=== PATIENT | male | born 1995 | race Caucasian/White ===

== ENCOUNTER 2016-10-12 12:07 | Emergency (ER) | payer OTHER ==
[2016-10-12] MEDS ORDERED: SUCRALFATE 1 GM/10 ML UDC PO STA (13:22)
[2016-10-12] MEDS ORDERED: PHENobarb/HYOSCY/ATROPINE/SCOP 5 ML SYRINGE PO STA (13:22)
[2016-10-12] MEDS ORDERED: FAMOTIDINE 20 MG TABLET PO STA (13:22)
[2016-10-12] MEDS ORDERED: MAG HYDROX/AL HYDROX/SIMETH 30 ML UDC PO STA (13:22)
[2016-10-12] MEDS ORDERED: LIDOCAINE VISCOUS 2% 15 ML UDC MM STA (13:22)
[2016-10-12] MEDS ORDERED: PHENobarb/HYOSCY/ATROPINE/SCOP 5 ML SYRINGE PO ONE (13:26)
[2016-10-12] MEDS ORDERED: SUCRALFATE 1 GM/10 ML UDC ONE (13:26)
[2016-10-12] MEDS ORDERED: LIDOCAINE VISCOUS 2% 15 ML UDC MM ONE (13:26)
[2016-10-12] MEDS ORDERED: MAG HYDROX/AL HYDROX/SIMETH 30 ML UDC ONE (13:27)
[2016-10-12] MEDS ORDERED: FAMOTIDINE 20 MG TABLET ONE (13:27)
== END 2016-10-12 14:38 | disposition home or self-care (01) ==
DX: K29.00 Acute gastritis without bleeding (principal)
CPT/HCPCS: 36415; 80053; 81003; 83690; 85025; 87339; 99283; 99284; A9270

== ENCOUNTER 2021-10-14 07:27 | Emergency (ER) | payer BC, OTHER ==
--- NOTE | 2021-10-14 07:38 | ED Physician Documentation ---
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 It continued for 20-30 minutes so put on a spare telemetry box and heart rate noted from 130s to 154 highest. No monitor strips printed though. HE noted HR decreasing but still fast.) Radiation: Other (mild frontal headache.). No: Jaw, Neck Improved by: No: Rest Worsened by: No: Exertion Associated symptoms: Palpitations, Other (mild headache). No: Shortness of air, Nausea, Feeling faint / dizzy Similar symptoms before: Has not had sx before Recently seen: Not recently seen, Other (did not get recent vaccination, nor had recent illness. No stimulant use except 1 cup coffee and a tea daily. Was in [place] last weekend with friends and drank heavily for one night, but has felt okay since then.) Review of Systems Constitutional: denies: Fever, Chills Nose: denies: Rhinorrhea / runny nose, Congestion Throat: denies: Sore throat Respiratory: denies: Cough PD PAST MEDICAL HISTORY - Past Medical History Past Medical History: Yes Cardiovascular: None Respiratory: None Neuro: None Endocrine/Autoimmune: None GI: GERD : None HEENT: None Psych: None Musculoskeletal: None Derm: None - Past Surgical History Past Surgical History: No - Present Medications Home Medications: Ambulatory Orders Medication Instructions Recorded Confirmed Omeprazole [PriLOSEC] 40 mg PO DAILY 10/14/21 10/14/21 - Allergies Allergies/Adverse Reactions: Allergies Allergy/AdvReac Type Severity Reaction Status Date / Time No Known Drug Allergies Allergy Verified 10/14/21 07:31 - Social History Does the pt smoke?: No Smoking Status: Never smoker Does the pt drink ETOH?: No Does the pt have substance abuse?: No - Immunizations Immunizations are current?: Yes PD ED PE NORMAL - Vitals Vital signs reviewed: Yes - General General: Alert and oriented X 3, No acute distress, Well developed/nourished - HEENT HEENT: Moist mucous membranes, Pharynx benign - Neck Neck: Supple, no meningeal sign, No adenopathy, Thyroid normal - Cardiac Cardiac: RRR (tachycardic but regular without rub nor murmur. ), No murmur, No rub - Respiratory Respiratory: Clear bilaterally, Other (no chestwall tenderness. ) - Abdomen Abdomen: Soft, Non tender - Derm Derm: Normal color, Warm and dry - Extremities Extremities: No edema, No calf tenderness / cord - Neuro Neuro: Alert and oriented X 3, No motor deficit, Normal speech Results - Vitals Vitals: Vital Signs - 24 hr 10/14/21 10/14/21 10/14/21 07:32 09:12 09:31 Temperature 37.4 C 37.5 C Heart Rate 106 H 88 98 Respiratory 16 17 10 L Rate Blood Pressure 151/85 H 118/65 118/65 O2 Saturation 100 98 100 Oxygen O2 Source Room air - EKG (time done) 07:36 Rate: Rate (enter#) (122) Rhythm: Sinus tachycardia [place]: Normal Intervals: Normal [place] QRS: Normal Ischemia: Normal ST segments, ST elevation c/w repol. No: ST elevation c/w ischemia, ST depression - Labs Labs: Laboratory Tests 10/14/21 10/14/21 10/14/21 08:05 08:05 08:05 WBC 8.4 RBC 5.03 Hgb 14.8 Hct 44.2 MCV 87.9 MCH 29.4 MCHC 33.5 RDW 12.6 Plt Count 245 MPV 9.8 Neut # (Auto) 5.0 Lymph # (Auto) 2.5 [place] # (Auto) 0.8 Eos # (Auto) 0.0 Baso # (Auto) 0.0 Absolute Nucleated RBC 0.00 Nucleated RBC % 0.0 Sodium 138 Potassium 3.7 Chloride 100 L Carbon Dioxide 27 Anion Gap 11.0 BUN 14 Creatinine 0.8 Estimated GFR (MDRD) 118 Glucose 102 H Calcium 9.2 Total Bilirubin 0.5 AST 16 ALT 16 Alkaline Phosphatase 71 Troponin I High Sens < 2.3 L C-Reactive Protein < 1.0 B-Natriuretic Peptide Total Protein 8.1 Albumin 4.9 Globulin 3.2 Albumin/Globulin Ratio 1.5 Lipase 30 TSH 10/14/21 10/14/21 08:05 08:05 WBC RBC Hgb Hct MCV MCH MCHC RDW Plt Count MPV Neut # (Auto) Lymph # (Auto) [place] # (Auto) Eos # (Auto) Baso # (Auto) Absolute Nucleated RBC Nucleated RBC % Sodium Potassium Chloride Carbon Dioxide Anion Gap BUN Creatinine Estimated GFR (MDRD) Glucose Calcium Total Bilirubin AST ALT Alkaline Phosphatase Troponin I High Sens C-Reactive Protein B-Natriuretic Peptide 11 Total Protein Albumin Globulin Albumin/Globulin Ratio Lipase TSH 4.33 PD MEDICAL DECISION MAKING - ED course Complexity details: re-evaluated patient (his heart rate decreased gradually with time and was getting some IV fluids. It sounds like possibly he had an episode of atrial fib, with described HR 135-150s, and is now recovering. No signs of more acute process. ), considered differential, d/w patient Departure - Departure Disposition: 01 Home, Self Care Clinical Impression: Tachycardia Condition: Stable Record reviewed to determine appropriate education?: Yes Instructions: ED Tachycardia Pat PSVT Follow-Up: Jennifer Benitez PA-C [Primary Care Provider] - Comments: Your EKG appears normal for age. The heart rate is fast but has slowed down reasonably. It still faster than normal. No signs of irregular rhythm at this time. Your blood tests are good to without any signs of abnormality of your blood count, electrolytes, kidney function, blood sugar, thyroid or troponin. Your chest x-ray is clear without any signs of fluid buildup in the lungs. So no signs of cardiomyopathy or heart failure. Unclear the cause of your heart rate going fast. Given the heart rate of it earlier being 140-150s, I would consider the possibility of an episode of A. fib with now resolving tachycardia. That can relate to dehydration or other irritants of the heart and be isolated episode. At this point I would just see how you feel over the next day or 2 if you are feeling normal., No further work-up is needed. Stay well-hydrated through the day. Normal diet and activity. Discharge Date/Time: 10/14/21 09:35
[2021-10-14] MEDS ORDERED: SODIUM CHLORIDE 0.9% 1,000 ML IV STA (07:55)
[2021-10-14] MEDS ORDERED: KETOROLAC 15 MG/ML VIAL IVP STA (07:56)
[2021-10-14 08:24] LABS: BASOPHILS % (AUTO) 0.5 %; EOSINOPHILS % (AUTO) 0.4 %; HCT - HEMATOCRIT 44.2 % (42.0-52.0); HGB - HEMOGLOBIN 14.8 g/dL (14.0-18.0); LYMPHOCYTES # (AUTO) 2.5 10^3/uL (1.5-3.5); LYMPHOCYTES % (AUTO) 29.5 %; MEAN CORPUSCULAR HEMOGLOBIN 29.4 pg (27.0-31.0); MEAN CORPUSCULAR HGB CONC 33.5 g/dL (32.0-36.0); MEAN CORPUSCULAR VOLUME 87.9 fL (80.0-94.0); MEAN PLATELET VOLUME 9.8 fL (7.4-11.4); MONOCYTES # (AUTO) 0.8 10^3/uL (0.0-1.0); MONOCYTES % (AUTO) 9.4 %; PLT - PLATELET COUNT 245 10^3/uL (130-450); RED BLOOD COUNT 5.03 10^6/uL (4.70-6.10); RED CELL DISTRIBUTION WIDTH 12.6 % (12.0-15.0); WHITE BLOOD COUNT 8.4 x10^3/uL (4.8-10.8)
[2021-10-14 08:39] LABS: ALBUMIN 4.9 g/dL (3.2-5.5); ALBUMIN/GLOBULIN RATIO 1.5 (1.0-2.2); ALKALINE PHOSPHATASE 71 IU/L (42-121); ALT ALANINE AMINOTRANSFERASE 16 IU/L (10-60); AST ASPARTATE AMINOTRANSFERASE 16 IU/L (10-42); BILIRUBIN,TOTAL 0.5 mg/dL (0.2-1.0); BUN - BLOOD UREA NITROGEN 14 mg/dL (6-20); CALCIUM 9.2 mg/dL (8.5-10.3); CARBON DIOXIDE - CO2 27 mmol/L (21-32); CHLORIDE 100 mmol/L (101-111); CREATININE 0.8 mg/dL (0.6-1.2); GFR - MDRD 118 (>89); GLUCOSE 102 mg/dL (70-100); LIPASE 30 U/L (22-51); POTASSIUM 3.7 mmol/L (3.5-5.0); SODIUM 138 mmol/L (135-145); TOTAL PROTEIN 8.1 g/dL (6.7-8.2)
[2021-10-14 08:50] LABS: CRP - C-REACTIVE PROTEIN < 1.0 mg/dL (0-1.0)
[2021-10-14 09:13] VITALS: BP 118/65
== END 2021-10-14 09:35 | disposition home or self-care (01) ==
LOC: ED 07:27
DX: R00.0 Tachycardia, unspecified (principal)
CPT/HCPCS: 36415; 80053; 83690; 83880; 84443; 84484; 85025; 86140; 93005; 96374; 99283

== ENCOUNTER 2022-02-06 08:00 | Outpatient (CLI) | payer BC | END 2022-02-06 23:59 | disposition home or self-care (01) | LOC: LAB.N 08:00 | PROVIDERS: ATTEND Family Medicine | DX: R10.32 Left lower quadrant pain (principal); B83.9 Helminthiasis, unspecified | CPT/HCPCS: 87177; 87328 ==

== ENCOUNTER 2023-01-14 06:31 | Emergency (ER) | payer BC ==
[2023-01-14] MEDS ORDERED: ONDANSETRON 4 MG/2 ML VIAL IVP STA (06:40)
[2023-01-14 07:26] LABS: BASOPHILS % (AUTO) 0.3 %; EOSINOPHILS # (AUTO) 0.1 10^3/uL (0.0-0.7); EOSINOPHILS % (AUTO) 0.5 %; LYMPHOCYTES # (AUTO) 0.8 10^3/uL (1.5-3.5); LYMPHOCYTES % (AUTO) 5.2 %; MEAN CORPUSCULAR HEMOGLOBIN 29.4 pg (27.0-31.0); MEAN CORPUSCULAR VOLUME 86.2 fL (80.0-94.0); MEAN PLATELET VOLUME 10.6 fL (7.4-11.4); MONOCYTES # (AUTO) 1.2 10^3/uL (0.0-1.0); NEUTROPHILS # (AUTO) 12.6 10^3/uL (1.5-6.6); NEUTROPHILS % (AUTO) 85.7 %; PLT - PLATELET COUNT 232 10^3/uL (130-450); RED BLOOD COUNT 5.45 10^6/uL (4.70-6.10); RED CELL DISTRIBUTION WIDTH 12.7 % (12.0-15.0); WHITE BLOOD COUNT 14.7 x10^3/uL (4.8-10.8)
--- NOTE | 2023-01-14 07:55 | ED Physician Documentation ---
History of Present Illness - Stated complaint Stated Complaint: N/V - Chief complaint Chief Complaint: General - History obtained from History obtained from: Patient - History of Present Illness Timing: Today Pain level max: 0 Pain level now: 0 - Additonal information Additional information: 27-year-old male presents to the emergency department with nausea and vomiting since last night. Started about 6 hours prior to arrival. No abdominal pain. No fevers. No chills. Nothing makes it better or worse. No diarrhea or constipation. 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 Review of Systems Constitutional: denies: Fever, Chills GI: denies: Vomiting, Diarrhea Skin: denies: Rash Musculoskeletal: denies: Neck pain, Back pain Neurologic: denies: Headache PD PAST MEDICAL HISTORY - Past Medical History Cardiovascular: None Respiratory: None Neuro: None Endocrine/Autoimmune: None GI: GERD : None HEENT: None Psych: None Musculoskeletal: None Derm: None - Past Surgical History Past Surgical History: No - Present Medications Home Medications: Ambulatory Orders Medication Instructions Recorded Confirmed Omeprazole [PriLOSEC] 40 mg PO DAILY 10/14/21 10/14/21 Ondansetron Odt [Zofran] 4 mg TL Q6H PRN #20 tablet 01/14/23 - Allergies Allergies/Adverse Reactions: Allergies Allergy/AdvReac Type Severity Reaction Status Date / Time No Known Drug Allergies Allergy Verified 01/14/23 06:41 - Social History Does the pt smoke?: No Smoking Status: Never smoker Does the pt drink ETOH?: No Does the pt have substance abuse?: No - Immunizations Immunizations are current?: Yes PD ED PE NORMAL - Vitals Vital signs reviewed: Yes - General General: Alert and oriented X 3, No acute distress - HEENT HEENT: Moist mucous membranes - Neck Neck: Supple, no meningeal sign - Cardiac Cardiac: RRR, Strong equal pulses - Respiratory Respiratory: No respiratory distress, Clear bilaterally - Abdomen Abdomen: Soft, Non tender, Non distended - Derm Derm: Warm and dry - Extremities Extremities: No edema - Neuro Neuro: Alert and oriented X 3 - Psych Psych: Normal mood, Normal affect Results - Vitals Vitals: Vital Signs - 24 hr 01/14/23 01/14/23 01/14/23 06:38 07:01 08:20 Temperature 37.1 C 37.7 C Heart Rate 141 H 127 H 122 H Respiratory 18 16 18 Rate Blood Pressure 119/80 104/82 H 116/79 O2 Saturation 99 99 Oxygen O2 Source Room air - Labs Labs: Laboratory Tests 01/14/23 01/14/23 07:00 07:45 WBC 14.7 H RBC 5.45 Hgb 16.0 Hct 47.0 MCV 86.2 MCH 29.4 MCHC 34.0 RDW 12.7 Plt Count 232 MPV 10.6 Neut # (Auto) 12.6 H Lymph # (Auto) 0.8 L [place] # (Auto) 1.2 H Eos # (Auto) 0.1 Baso # (Auto) 0.0 Absolute Nucleated RBC 0.00 Nucleated RBC % 0.0 Sodium 141 Potassium 4.0 Chloride 107 Carbon Dioxide 23 Anion Gap 11.0 BUN 13 Creatinine 0.7 Estimated GFR (MDRD) 135 Glucose 112 H Calcium 8.4 L Total Bilirubin 0.7 AST 16 ALT 15 Alkaline Phosphatase 49 Total Protein 6.5 L Albumin 3.9 Globulin 2.6 Albumin/Globulin Ratio 1.5 Lipase 26 PD Medical Decision Making - ED course Complexity details: reviewed results, re-evaluated patient, considered differential, d/w patient ED course: 27-year-old male with nausea and vomiting last night. Feels better after Zofran and IV fluids. Tolerating p.o. well here. He does have tachycardia, he states that this was present last time he was in the emergency department as well. Mildly elevated white blood cell count at 14,700. Electrolytes do not show any acute abnormalities. Abdomen is soft, nontender nondistended. Likely viral syndrome. We will prescribe Zofran for home and have him follow-up with his doctor regarding the tachycardia. Patient counseled regarding signs and sym ptoms for which I believe and urgent re-evaluation would be necessary. Patient with good understanding of and agreement to plan and is comfortable going home at this time This document was made in part using voice recognition software. While efforts are made to proofread this document, sound alike and grammatical errors may occur. Departure - Departure Disposition: 01 Home, Self Care Clinical Impression: Viral syndrome, Tachycardia Condition: Good Instructions: ED Viral Syndrome Follow-Up: your,doctor in 1 week if not better [Other] Prescriptions: Ondansetron Odt [Zofran] 4 mg TL Q6H PRN #20 tablet PRN Reason: Nausea / Vomiting Comments: Your prescriptions were sent to [facility] in [place]. Please follow-up with your doctor for further care. Please return if you worsen. Your heart rate is also elevated today, it was elevated last time you are in the emergency department as well, if it does not return to a normal rate even when you are not in the emergency department, you should be further evaluated by your doctor for this.
[2023-01-14 08:14] LABS: ALBUMIN 3.9 g/dL (3.2-5.5); ALBUMIN/GLOBULIN RATIO 1.5 (1.0-2.2); BILIRUBIN,TOTAL 0.7 mg/dL (0.2-1.0); CALCIUM 8.4 mg/dL (8.5-10.3); CREATININE 0.7 mg/dL (0.6-1.2); TOTAL PROTEIN 6.5 g/dL (6.7-8.2)
[2023-01-14 08:20] VITALS: BP 116/79
[2023-01-14 08:50] LABS: BILIRUBIN,URINE NEGATIVE (NEGATIVE); GLUCOSE, URINE (UA) NEGATIVE (NEGATIVE); KETONES,URINE (UA) 40 mg/dL (NEGATIVE); LEUKOCYTE ESTERASE, URINE NEGATIVE (NEGATIVE); NITRITE,URINE NEGATIVE (NEGATIVE); OCCULT BLOOD,URINE NEGATIVE (NEGATIVE); PROTEIN,URINE 30 mg/dL (NEGATIVE); UROBILINOGEN,URINE 1 (NORMAL) E.U./dL (NORMAL)
[2023-01-14 08:51] LABS: CLARITY,URINE CLEAR (CLEAR)
[2023-01-14 09:04] LABS: RBC,URINE 0-5 /HPF (0-5); WBC,URINE 0-3 /HPF (0-3)
[2023-01-14 09:05] LABS: BACTERIA,URINE Few /HPF (None Seen); MUCUS,URINE Few Strands; SQUAMOUS EPITHELIAL CELL,UR NONE SEEN (<= Few)
== END 2023-01-14 08:52 | disposition home or self-care (01) ==
LOC: ED 06:31
DX: R00.0 Tachycardia, unspecified (principal); B34.9 Viral infection, unspecified
CPT/HCPCS: 36415; 80053; 81001; 81003; 83690; 85025; 87086; 96374; 99283